=== PATIENT | male | born 1990 | race Caucasian/White ===

== ENCOUNTER 2016-08-09 13:27 | Emergency (ER) | payer BC ==
[2016-08-09 13:37] VITALS: BP 137/85
--- NOTE | 2016-08-09 14:41 | XRAY Preliminary Report ---
Exam: XR Ankle 3 View LT IMPRESSION: Normal ankle radiography. [facility] SITE ID: [id number]
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
--- NOTE | 2016-08-09 14:47 | XRAY Preliminary Report ---
Exam: XR Foot 3 View LT IMPRESSION: Normal foot radiography. [facility] SITE ID: [id number]
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
== END 2016-08-09 15:46 | disposition home or self-care (01) ==
LOC: ED 13:27
DX: S93.412A Sprain of calcaneofibular ligament of left ankle, initial encounter (principal); X50.0XXA Overexertion from strenuous movement or load, initial encounter; Y93.I9 Activity, other involving external motion; R03.0 Elevated blood-pressure reading, without diagnosis of hypertension
CPT/HCPCS: 99283